=== PATIENT | female | born 1980 | race Caucasian/White ===

== ENCOUNTER 2017-07-25 14:46 | Emergency (ER) | payer OTHER, SELFPAY ==
[2017-07-25] MEDS ORDERED: Metoclopramide HCl 10 MG/2 ML VIAL ONE (15:35)
[2017-07-25] MEDS ORDERED: diphenhydrAMINE 50 MG/ML VIAL ONE (15:35)
[2017-07-25] MEDS ORDERED: Magnesium 2 GM/NS 0.9% 50 ML 2 GM in Premix Bag 1 BAG IVPB SCH (18:00)
--- NOTE | 2017-07-25 19:37 | CT ---
CT OF BRAIN PERFORMED WITHOUT CONTRAST ENHANCEMENT: 07/25/17 HISTORY: Headache. The ventricular and cisternal system is within normal limits. There is no signs of intracerebral hem orrhage or extra-axial fluid collections. No mass lesion or mass effect. A tiny area of what appears to be air density is seen adjacent to the sella of questionable significance. No signs of any fract ure. Mucosal change is seen in the maxillary sinuses. IMPRESSION: No acute intracranial abnormalities. POS: [facility]
[2017-07-25] MEDS ORDERED: Ketorolac Tromethamine 30 MG/ML VIAL ONE (20:24)
[2017-07-25] MEDS ORDERED: HYDROcodone/Acetaminophen 10/325 mg Tablet ONE (20:24)
[2017-07-25] MEDS ORDERED: Dexamethasone 4 mg/ml Vial ONE (20:24)
== END 2017-07-25 20:45 | disposition home or self-care (01) ==
LOC: ERS 14:46
DX: R51 Headache (principal); Z79.899 Other long term (current) drug therapy
CPT/HCPCS: 70450; 81025; 96365; 96366; 96367; 96375; J1100; J1200; J1885; J2765; J3475